=== PATIENT | male | born 1995 | race Caucasian/White ===

== ENCOUNTER 2020-07-04 18:23 | Emergency (ER) | payer SELFPAY ==
[~2020-07-04] VITALS: Ht 177.8 cm; Wt 68.0 kg
[2020-07-04] MEDS ORDERED: SODIUM CHLORIDE 0.9% 1,000 ML IV ONE (19:02)
[2020-07-04] MEDS ORDERED: ONDANSETRON HCL 4MG/2ML INJ IV STA (19:02)
[2020-07-04 19:18] LABS: BASOPHILS % 0.3 % (0.0-2.0); EOSINOPHILS % 0.1 % (0.0-5.0); HEMATOCRIT. 47.5 % (42.0-52.0); HEMOGLOBIN. 16.3 g/dL (14.0-18.0); LYMPHOCYTES % 10.2 % (20.0-50.0); MEAN CORPUSCULAR HEMOGLOBIN 30.7 pg (28.0-32.0); MEAN CORPUSCULAR VOLUME 89.3 fL (80.0-94.0); MEAN PLATELET VOLUME 9.4 fl (7.4-10.4); MONOCYTES % 6.3 % (2.0-8.0); NEUTROPHILS % 83.1 % (40.0-76.0); PLATELET 381 x1000/uL (130-400); RED BLOOD CELL COUNT 5.32 mill/uL (4.7-6.1); RED CELL DISTRIBUTION WIDTH 13.4 % (11.6-14.6)
[2020-07-04 19:22] LABS: CHLORIDE 104 mEq/L (98-107)
[2020-07-04 19:26] LABS: INR 1.1; PROTHROMBIN TIME 11.8 sec (9.6-11.0)
[2020-07-04 20:57] VITALS: BP 119/74
== END 2020-07-04 20:58 | disposition home or self-care (01) ==
LOC: ER 18:23
DX: R06.02 Shortness of breath (principal); F32.9 Major depressive disorder, single episode, unspecified; F12.10 Cannabis abuse, uncomplicated
CPT/HCPCS: 36415; 71045; 80053; 85025; 85610; 96361; 96374; 99284; J2405; J7030

== ENCOUNTER 2020-11-11 10:55 | Emergency (ER) | payer MEDICARE, MEDICAID ==
[~2020-11-11] VITALS: Ht 177.8 cm; Wt 75.0 kg
[2020-11-11] MEDS ORDERED: ACETAMINOPHEN 325MG TABLET PO ONE (11:30)
[2020-11-11] MEDS ORDERED: IBUPROFEN 400MG TABLET PO ONE (11:30)
[2020-11-11 11:37] VITALS: BP 150/87
== END 2020-11-11 11:38 | disposition home or self-care (01) ==
LOC: ER 10:55
DX: Z76.5 Malingerer [conscious simulation] (principal); M25.562 Pain in left knee; F19.20 Other psychoactive substance dependence, uncomplicated; Z71.51 Drug abuse counseling and surveillance of drug abuser
CPT/HCPCS: 93005; 99283